=== PATIENT | male | born 1945 | race Caucasian/White ===

== ENCOUNTER → 2023-06-30 | Outpatient (REF) | payer MEDICARE, MEDICAID, SELFPAY ==
[2023-06-30 10:25] LABS: Hematocrit 44.2 % (40-54); Hemoglobin 14.6 g/dL (13.0-16.5); Mean Corpuscular Hgb 29.7 pg (27.0-32.0); Mean Corpuscular Volume 89.8 fL (80-94); Mean Platelet Vol. 9.2 fl (6.2-12.0); Platelet Count 254 K/mm3 (150-450); Red Blood Count 4.92 M/mm3 (4.6-6.2); White Blood Count 6.9 K/mm3 (4.4-11.0)
[2023-06-30 10:32] LABS: Vitamin D,25 Hydroxy 36.8 ng/mL
[2023-06-30 11:42] LABS: ALB/GLOB Ratio 1.1 RATIO (0.9-2.4); AST(SGOT) 16 U/L (15-37); Alanine Aminotransfer ALT/SGPT 27 U/L (16-61); Albumin, Serum 3.2 g/dL (3.2-5.0); Alkaline Phosphatase 63 U/L (45-117); Anion Gap 6 (5-15); BUN 17 mg/dL (7-18); BUN/Creat Ratio 12.1 RATIO (10-20); Chloride 112 mmol/L (98-107); Cholesterol 161 mg/dL (200); Creatinine, Serum 1.41 mg/dL (0.70-1.30); EST Glomerular Filtration Rate 52 mL/min (>60); Est Glom Filt Rate - Afr Amer 63 mL/min (>60); Glucose 115 mg/dL (74-106); High Density Lipoprotein 37 mg/dL; Magnesium 2.3 mg/dL (1.6-2.6); Potassium 3.6 mmol/L (3.5-5.1); Protein, Total 6.2 g/dL (6.4-8.2); Sodium Level 142 mmol/L (136-145); Thyroid Stim Hormone (TSH) 1.66 uIU/mL (0.358-3.74); Triglycerides 113 mg/dL; Very Low Density Lipoprotein 23 mg/dL (5-40)
[2023-06-30 14:38] LABS: Hemoglobin A1c 6.2 % (3.8-5.6)
== END ==
LOC: OLS.ACW300 05:00
PROVIDERS: Visit Provider Family Medicine
DX: Z02.2 Encounter for examination for admission to residential institution (principal)
CPT/HCPCS: 36415; 80053; 80061; 82306; 83036; 83735; 84443; 85027